=== PATIENT | female | born 1970 | race Caucasian/White ===

== ENCOUNTER 2016-10-30 06:38 | Day surgery (SDC) | payer OTHER ==
[2016-10-30] MEDS ORDERED: LR 1,000 ML IV ONE (07:32)
[2016-10-30] MEDS ORDERED: LIDOCAINE 1% 5 ML SDV ID PRN (07:32)
--- NOTE | 2016-10-30 10:29 | GOP ---
[f rep st] OPERATIVE REPORT DATE OF OPERATION: 10/30/2016 SURGEON: Amelie Morrow MD ANESTHESIA: General with LMA. ANESTHESIOLOGIST: Blayne Mcpherson MD. PREOPERATIVE DIAGNOSIS: 1. Dysfunctional uterine bleeding. 2. Symptomatic uterine polyps. POSTOPERATIVE DIAGNOSIS: 1. Dysfunctional uterine bleeding. 2. Symptomatic uterine polyps. PROCEDURE PERFORMED: Hysteroscopic polypectomy, NovaSure ablation. FINDINGS: There were 2 distinct polyps arising from the posterior wall and thick endometrial tissue . ESTIMATED BLOOD LOSS: Minimal. INDICATIONS: Patient is a 45-year-old, G2, P2, and currently using withdrawal for con trol. Has had very heavy menstrual cycles and ultrasound sonohysterogram showed several endometrial polyps biopsy was negative for uterine hyperplasia or malignancy and the patient desires definitive treatment. DESCRIPTION OF PROCEDURE: With informed consent signed, patient was taken to the operating room, pl aced under general anesthesia without complication, placed in a low dorsal lithotomy position. Prep ped and draped in usual sterile fashion. Tenaculum placed on the anterior lip of the cervix. Cervi x dilated to 9.5 mm. Hysteroscope placed using normal saline as the filling medium and findings as noted above. [employer] morcellator placed into the uterine cavity and resection of the polyps done and then removal of the thickened endometrial tissue done as well. Hemostasis was n oted. Next, the morcellator was removed. The net fluid deficit was 110 cc. NovaSure endometrial a blation device placed into the uterine cavity. Length measured at 6 cm, width at 4 cm. Integrity t est passed and burn time was a minute and a half. NovaSure removed. Hemostasis noted. Patient elana camryn in supine position, awakened in the operating room, taken to the recovery room in stable conditi on tolerating the procedure well. COMPLICATIONS: None. /[id number]/MODL
== END 2016-10-30 10:28 | disposition home or self-care (01) ==
LOC: FSGY 06:38
PROVIDERS: ATTEND Obstetrics & Gynecology Gynecology
PROC: 0U5B8ZZ Destruction of Endometrium, Via Natural or Artificial Opening Endoscopic (ICD-10-PCS; principal; 2016-10-30 08:00)
PROC: 0UDB8ZZ Extraction of Endometrium, Via Natural or Artificial Opening Endoscopic (ICD-10-PCS; principal; 2016-10-30 08:00)
DX: N93.9 Abnormal uterine and vaginal bleeding, unspecified (principal); N84.0 Polyp of corpus uteri
CPT/HCPCS: C1782